=== PATIENT | female | born 1980 | race Caucasian/White ===

== ENCOUNTER 2016-12-02 23:05 | Emergency (ER) | payer OTHER ==
--- NOTE | 2016-12-03 00:48 | ED CLINICAL REPORT ---
Clinical Report - Physicians/Mid Levels [facility] [address] [place] [address] 12/02/2016 23:05 [id number] Time Seen: 23:19. Arrived- By private vehicle. Historian- patient. HISTORY OF PRESENT ILLNESS Chief Complaint: Injury to the right ankle. The injury happened today. The patient sustained an inversion injury while running playing soccer (she felt a "pop"). Occurred at an athletic field. Patient is experiencing mild pain. No other injury. REVIEW OF SYSTEMS The patient complains of pain on weight bearing. She has had new onset of swelling of the right ankle (mild). She has had new onset of weakness of the right ankle (severe). No tingling, numbness or skin laceration. All systems otherwise negative, except as recorded above. SOCIAL HISTORY Never smoker. No alcohol use or drug use. FAMILY HISTORY No significant family medical history. ADDITIONAL NOTES The nursing notes have been reviewed. PHYSICAL EXAM Vital Signs: 12/02/2016 23:11 BP: 117/73. HR: 82. RR: 14. O2 saturation: 99%. Temp: 97.6 F. Pain level now: 2/10. Have been reviewed. Appearance: Alert. Eyes: Pupils equal, round and reactive to light. ENT: Pharynx normal. Neck: Neck supple. CVS: Normal heart rate and rhythm. Heart sounds normal. Respiratory: No respiratory distress. Breath sounds normal. Abdomen: No visible injury. Soft and nontender. Bowel sounds normal. No organomegaly. No mass. Back: Normal inspection. Skin: Skin intact. Skin warm and dry. Extremities: Right lateral ankle: moderate tenderness and swelling. Limited ROM secondary to pain (diminished eversion). Ligamentous laxity present, as evidenced by a positive anterior drawer test and positive inversion stress test. Neurovascular intact distally. No ecchymosis or deformity. Extremities otherwise negative. Neuro, Vascular and Tendons: Vascular status intact. Sensation intact. Motor intact. Gait: Gait not tested due to pain. Neuro: No motor deficit. No sensory deficit. LABS, X-RAYS, AND EKG Rt Ankle X-ray: Avulsion fracture of the distal right fibula. The X-rays were independently viewed by me. PROGRESS AND PROCEDURES Splint Application: Orthopedic boot applied to right ankle. Reassessed extremity following splint application. Neurovascular intact. Follow-up recommended. Fitted for crutches by the tech. Consult obtained from orthopedics. Dr. Richardson. Phone consult only. Will see patient in the office. Patient/family counseled. Old medical records ordered. Old records unavailable. Disposition: Discharged. Condition: stable. CLINICAL IMPRESSION Sprain of the right ankle. Closed avulsion fracture of the lateral malleolus of the right fibula. INSTRUCTIONS Apply ice for 20 minutes four times a day until better. Don't apply ice directly to skin and don't use while asleep. Use crutches until released. Wear boot orthosis until released. Elevate affected areas above chest level. No driving or operating machinery while taking medication. Warnings: COMPLICATIONS: Complications from this condition include: possible injury to a tendon and possible injury to a ligament. Future problems may include loss of function, pain, deformity and poor fracture healing. It is important to follow up with a physician for further evaluation and treatment. GENERAL WARNINGS: Return or contact your physician immediately if your condition worsens or changes unexpectedly, if not improving as expected, or if other problems arise. Prescription Medications: Hydrocodone/APAP 5mg/325mg: take 1 to 2 orally every 6 hours as needed for pain. Dispense fifteen (15). No refills. Understanding of the discharge instructions verbalized by patient. Follow-up with: [facility], , [address], , [place], [address] Follow up in two days. Call for the next available appointment. (Electronically signed by Erickson Mitchell MD 12/03/2016 2:31)
--- NOTE | 2016-12-03 00:48 | ED NURSING NOTES ---
Clinical Report - Nurses [facility] [address] [place] [address] 12/02/2016 23:05 Patient: RAMIRO GONCALVES TRIAGE Triage time 23:11 Dec 02 2016. Chief Complaint: INJURY TO RIGHT ANKLE. SEPSIS SCREEN: Sepsis Screen: negative. Negative (no infection suspected/documented). OTTO COMA SCORE: [place] Coma Scale: 15- eyes open spontaneously (4); best verbal response- oriented x 4 (5); best motor response- obeys commands (6). --23:19 AliM 23:11 12/02/16. BP: 117/73. HR: 82. RR: 14. O2 saturation: 99%. Temp: 97.6 F (oral). Pain level now: 11/13. --23:19 AliM. Weight: 48.5 kg stated. Height/Length: 62 inches Per Patient. BMI: 19.6. --23:19 AliM. Medications Citalopram Hydrobromide Oral. --23:14 AliM Depo-Provera Intramuscular. --23:17 AliM. Allergies No Known Drug Allergy. --23:14 AliM. History Arrived by private vehicle. Historian: patient. Unaccompanied. Primary physician (Ema Camargo). ( Fell and twisted right ankle.). This occurred just prior to arrival. Occurred at an athletic field. Mechanism of injury: sustained an external rotation injury. ( Pt reports playing soccer when she fell and twisted her ankle laterally. Pt reports hearing one pop.). She has had numbness, trouble walking and weakness. 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 PAST MEDICAL HX: Tetanus status: up-to-date. Immunizations: up-to-date. Last normal menstrual period- 10/30/2016. SOCIAL HX: Never smoker. No alcohol use or drug use. No infectious disease exposure. ABUSE ASSESSMENT: No report of abuse. NUTRITIONAL RISK ASSESSMENT: The nutritional risk assessment revealed no deficiencies. FUNCTIONAL ASSESSMENT: Functional assessment: no impairments noted. LEARNING NEEDS ASSESSMENT: The learning needs assessment revealed no barriers. FALL RISK ASSESSMENT: Fall risk assessment completed. Risk factors identified include patient impairment of mobility and sensation. Fall interventions initiated. Side rails up x1. Instructed not to get up without assistance. SKIN INTEGRITY ASSESSMENT: Skin integrity risk assessment completed. No skin integrity risk identified. --23:19 AliM. ADDITIONAL SURGERIES: C section. --23:15 AliM. Interventions ID band on patient. To treatment room. --23:19 AliM. PHYSICAL ASSESSMENT Ambulatory to room. GENERAL / NEURO / PSYCH: Oriented X 4. Alert. Appears in no acute distress. CVS: Capillary refill is greater than 2 seconds (Cap refill 3sec but consistent with unaffected extremity.). EXTREMITIES: Limited ROM present in the right ankle. Extremity pulses are within normal limits. Pain with weight bearing on RLE. Right lateral ankle: swelling. Limited ROM secondary to pain (diminished dorsiflexion). SKIN: Skin intact. Skin is warm and dry. --23:21 AliM. NURSING PROGRESS NOTES The plan of care for this patient has been created. Cold pack applied. Extremity elevated. Reassurance given. Call light placed in reach. Side rails up x 1. Bed placed in lowest position. Brakes of bed on. Patient ready for evaluation- ED physician notified. --23:22 AliM Immobilizer applied by histopathology technician; distal pulses intact, sensation intact and motor function within normal limits (Right Ankle Boot). Patient fit with new crutches. Crutch training performed by [employer]; the patient demonstrated proper use. --00:25 Willi Pope. DISPOSITION / DISCHARGE 01:00 12/03/16. Condition at departure: stable. Fall risk assessment completed; Patient using crutches, patient observed ambulating and is steady on her feet. No learning barriers present. Discharge instructions provided and reviewed with the patient. Reviewed medication(s) side effects, precautions, dosing and course information. Prescription(s) given to the patient. Activity restrictions (minimal use of injured extremity and rest) reviewed. Patient verbalized understanding. Written instructions provided in Icelandic. ( Ice and elevate. Do not put weight on affected extremity until cleared. Follow up with Orthopedic surgeon in two days, information provided. Wear boot until released. Reviewed Crutch walking.). The patient was discharged by the physician. She was discharged home and accompanied by fur cutting machine operator. She left the Emergency Department on crutches and via private vehicle. Supervisor [employer] driving. FALL RISK ASSESSMENT: Fall risk assessment completed. No fall risk identified. --01:22 Beatrice Patel 01:00 12/03/16. BP: 114/70. HR: 78. RR: 20. O2 saturation: 99% on room air. Temp: deferred. Pain level now: 10/13. --01:22 Beatrice Patel. Locked/Released at 12/03/2016 1:23 by Beatrice Patel,
--- NOTE | 2016-12-03 00:48 | ED ORDER SUMMARY ---
..... Patient: RAMIRO GONCALVES OrderSheet [facility] VisitID: [id number] [address] [place] [address] 36y, F Registration Date/Time: 12/02/2016 ORDER SHEET Weight: 48.5 kg (stated) Allergies: No Known Drug Allergy GENERAL ORDERS: Ankle 3 or 4V Right Urgent (23:34 12/02/2016 Jose WATSON) (Ack 23:36 IJurca ER Tech1) (23:46 MCampbell) Crutches (23:59 12/02/2016 Jose WATSON) (0:01 AMcKenna) Orthopedic Boot (23:59 12/02/2016 Jose WATSON) (0:01 AMcKenna) MEDICATION ORDERS: IV FLUIDS: ORDER SHEET NOTES: [Electronically signed by Beatrice Patel (:12/03/2016)] [Electronically signed by Erickson Mitchell MD (02:31 12/03/2016)] [Electronically locked/signed by Beatrice Patel (:12/03/2016)]
--- NOTE | 2016-12-03 00:48 | ED CLINICAL REPORT ---
Clinical Report - Physicians/Mid Levels [facility] [address] [place] [address] 12/02/2016 23:05 [id number] Time Seen: 23:19. Arrived- By private vehicle. Historian- patient. HISTORY OF PRESENT ILLNESS Chief Complaint: Injury to the right ankle. The injury happened today. The patient sustained an inversion injury while running playing soccer (she felt a "pop"). Occurred at an athletic field. Patient is experiencing mild pain. No other injury. REVIEW OF SYSTEMS The patient complains of pain on weight bearing. She has had new onset of swelling of the right ankle (mild). She has had new onset of weakness of the right ankle (severe). No tingling, numbness or skin laceration. All systems otherwise negative, except as recorded above. SOCIAL HISTORY Never smoker. No alcohol use or drug use. FAMILY HISTORY No significant family medical history. ADDITIONAL NOTES The nursing notes have been reviewed. PHYSICAL EXAM Vital Signs: 12/02/2016 23:11 BP: 117/73. HR: 82. RR: 14. O2 saturation: 99%. Temp: 97.6 F. Pain level now: 2/10. Have been reviewed. Appearance: Alert. Eyes: Pupils equal, round and reactive to light. ENT: Pharynx normal. Neck: Neck supple. CVS: Normal heart rate and rhythm. Heart sounds normal. Respiratory: No respiratory distress. Breath sounds normal. Abdomen: No visible injury. Soft and nontender. Bowel sounds normal. No organomegaly. No mass. Back: Normal inspection. Skin: Skin intact. Skin warm and dry. Extremities: Right lateral ankle: moderate tenderness and swelling. Limited ROM secondary to pain (diminished eversion). Ligamentous laxity present, as evidenced by a positive anterior drawer test and positive inversion stress test. Neurovascular intact distally. No ecchymosis or deformity. Extremities otherwise negative. Neuro, Vascular and Tendons: Vascular status intact. Sensation intact. Motor intact. Gait: Gait not tested due to pain. Neuro: No motor deficit. No sensory deficit. LABS, X-RAYS, AND EKG Rt Ankle X-ray: Avulsion fracture of the distal right fibula. The X-rays were independently viewed by me. PROGRESS AND PROCEDURES Splint Application: Orthopedic boot applied to right ankle. Reassessed extremity following splint application. Neurovascular intact. Follow-up recommended. Fitted for crutches by the tech. Consult obtained from orthopedics. Dr. Richardson. Phone consult only. Will see patient in the office. Patient/family counseled. Old medical records ordered. Old records unavailable. Disposition: Discharged. Condition: stable. CLINICAL IMPRESSION Sprain of the right ankle. Closed avulsion fracture of the lateral malleolus of the right fibula. INSTRUCTIONS Apply ice for 20 minutes four times a day until better. Don't apply ice directly to skin and don't use while asleep. Use crutches until released. Wear boot orthosis until released. Elevate affected areas above chest level. No driving or operating machinery while taking medication. Warnings: COMPLICATIONS: Complications from this condition include: possible injury to a tendon and possible injury to a ligament. Future problems may include loss of function, pain, deformity and poor fracture healing. It is important to follow up with a physician for further evaluation and treatment. GENERAL WARNINGS: Return or contact your physician immediately if your condition worsens or changes unexpectedly, if not improving as expected, or if other problems arise. Prescription Medications: Hydrocodone/APAP 5mg/325mg: take 1 to 2 orally every 6 hours as needed for pain. Dispense fifteen (15). No refills. Understanding of the discharge instructions verbalized by patient. Follow-up with: [facility], , [address], , [place], [address] Follow up in two days. Call for the next available appointment. (Electronically signed by Erickson Mitchell MD 12/03/2016 2:31)
--- NOTE | 2016-12-03 00:48 | ED ORDER SUMMARY ---
..... Patient: RAMIRO GONCALVES OrderSheet [facility] VisitID: [id number] [address] [place] [address] 36y, F Registration Date/Time: 12/02/2016 ORDER SHEET Weight: 48.5 kg (stated) Allergies: No Known Drug Allergy GENERAL ORDERS: Ankle 3 or 4V Right Urgent (23:34 12/02/2016 Jose WATSON) (Ack 23:36 IJurca ER Tech1) (23:46 MCampbell) Crutches (23:59 12/02/2016 Jose WATSON) (0:01 AMcKenna) Orthopedic Boot (23:59 12/02/2016 Jose WATSON) (0:01 AMcKenna) MEDICATION ORDERS: IV FLUIDS: ORDER SHEET NOTES: [Electronically signed by Beatrice Patel (:12/03/2016)] [Electronically signed by Erickson Mitchell MD (02:31 12/03/2016)] [Electronically locked/signed by Beatrice Patel (:12/03/2016)]
--- NOTE | 2016-12-03 00:48 | ED NURSING NOTES ---
Clinical Report - Nurses [facility] [address] [place] [address] 12/02/2016 23:05 Patient: RAMIRO GONCALVES TRIAGE Triage time 23:11 Dec 02 2016. Chief Complaint: INJURY TO RIGHT ANKLE. SEPSIS SCREEN: Sepsis Screen: negative. Negative (no infection suspected/documented). OTTO COMA SCORE: [place] Coma Scale: 15- eyes open spontaneously (4); best verbal response- oriented x 4 (5); best motor response- obeys commands (6). --23:19 AliM 23:11 12/02/16. BP: 117/73. HR: 82. RR: 14. O2 saturation: 99%. Temp: 97.6 F (oral). Pain level now: 11/13. --23:19 AliM. Weight: 48.5 kg stated. Height/Length: 62 inches Per Patient. BMI: 19.6. --23:19 AliM. Medications Citalopram Hydrobromide Oral. --23:14 AliM Depo-Provera Intramuscular. --23:17 AliM. Allergies No Known Drug Allergy. --23:14 AliM. History Arrived by private vehicle. Historian: patient. Unaccompanied. Primary physician (Ema Camargo). ( Fell and twisted right ankle.). This occurred just prior to arrival. Occurred at an athletic field. Mechanism of injury: sustained an external rotation injury. ( Pt reports playing soccer when she fell and twisted her ankle laterally. Pt reports hearing one pop.). She has had numbness, trouble walking and weakness. 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 PAST MEDICAL HX: Tetanus status: up-to-date. Immunizations: up-to-date. Last normal menstrual period- 10/30/2016. SOCIAL HX: Never smoker. No alcohol use or drug use. No infectious disease exposure. ABUSE ASSESSMENT: No report of abuse. NUTRITIONAL RISK ASSESSMENT: The nutritional risk assessment revealed no deficiencies. FUNCTIONAL ASSESSMENT: Functional assessment: no impairments noted. LEARNING NEEDS ASSESSMENT: The learning needs assessment revealed no barriers. FALL RISK ASSESSMENT: Fall risk assessment completed. Risk factors identified include patient impairment of mobility and sensation. Fall interventions initiated. Side rails up x1. Instructed not to get up without assistance. SKIN INTEGRITY ASSESSMENT: Skin integrity risk assessment completed. No skin integrity risk identified. --23:19 AliM. ADDITIONAL SURGERIES: C section. --23:15 AliM. Interventions ID band on patient. To treatment room. --23:19 AliM. PHYSICAL ASSESSMENT Ambulatory to room. GENERAL / NEURO / PSYCH: Oriented X 4. Alert. Appears in no acute distress. CVS: Capillary refill is greater than 2 seconds (Cap refill 3sec but consistent with unaffected extremity.). EXTREMITIES: Limited ROM present in the right ankle. Extremity pulses are within normal limits. Pain with weight bearing on RLE. Right lateral ankle: swelling. Limited ROM secondary to pain (diminished dorsiflexion). SKIN: Skin intact. Skin is warm and dry. --23:21 AliM. NURSING PROGRESS NOTES The plan of care for this patient has been created. Cold pack applied. Extremity elevated. Reassurance given. Call light placed in reach. Side rails up x 1. Bed placed in lowest position. Brakes of bed on. Patient ready for evaluation- ED physician notified. --23:22 AliM Immobilizer applied by planning technician; distal pulses intact, sensation intact and motor function within normal limits (Right Ankle Boot). Patient fit with new crutches. Crutch training performed by [employer]; the patient demonstrated proper use. --00:25 Willi Pope. DISPOSITION / DISCHARGE 01:00 12/03/16. Condition at departure: stable. Fall risk assessment completed; Patient using crutches, patient observed ambulating and is steady on her feet. No learning barriers present. Discharge instructions provided and reviewed with the patient. Reviewed medication(s) side effects, precautions, dosing and course information. Prescription(s) given to the patient. Activity restrictions (minimal use of injured extremity and rest) reviewed. Patient verbalized understanding. Written instructions provided in Italian. ( Ice and elevate. Do not put weight on affected extremity until cleared. Follow up with Orthopedic surgeon in two days, information provided. Wear boot until released. Reviewed Crutch walking.). The patient was discharged by the physician. She was discharged home and accompanied by sheeter machine operator. She left the Emergency Department on crutches and via private vehicle. Dry Cell Tester driving. FALL RISK ASSESSMENT: Fall risk assessment completed. No fall risk identified. --01:22 Beatrice Patel 01:00 12/03/16. BP: 114/70. HR: 78. RR: 20. O2 saturation: 99% on room air. Temp: deferred. Pain level now: 10/13. --01:22 Beatrice Patel. Locked/Released at 12/03/2016 1:23 by Beatrice Patel,
--- NOTE | 2016-12-03 02:32 | ED MED RECONCILIATION SUMMARY ---
Patient: RAMIRO GONCALVES Medication Reconciliation Report [facility] VisitID: [id number] [address] [place] [address] 36y, F Registration Date/Time: 12/02/2016 Weight: 48.5 kg Height/Length: 62 in. BMI: 19.6 ALLERGIES: No Known Drug Allergy The patient's Home Medications are listed below: THE FOLLOWING MEDICATIONS NEED TO BE RECONCILED: Citalopram Hydrobromide Oral Depo-Provera Intramuscular The source(s) of the original Home Medication information: Not obtained. The following Medications were given to the patient in the Emergency Department: None. The following Medications were prescribed to the patient: Hydrocodone/APAP 5mg/325mg: take 1 to 2 orally every 6 hours as needed for pain. Dispense fifteen (15). No refills. -- Erickson Mitchell MD
--- NOTE | 2016-12-03 02:32 | ED MAR SUMMARY ---
..... Medication Administration Record [facility] [address], [place] [id number] Patient: RAMIRO GONCALVES Visit ID: [id number] 36y, F Weight: 48.5 kg Height/Length: 62 in BMI: 19.6 ALLERGIES: No Known Drug Allergy
--- NOTE | 2016-12-03 02:32 | ED MAR SUMMARY ---
..... Medication Administration Record [facility] [address] [place], [place] [id number] Patient: RAMIRO GONCALVES Visit ID: [id number] 36y, F Weight: 48.5 kg Height/Length: 62 in BMI: 19.6 ALLERGIES: No Known Drug Allergy
--- NOTE | 2016-12-03 02:32 | ED DISCHARGE INSTRUCTIONS ---
Patient: RAMIRO GONCALVES General Instructions [facility] VisitID: [id number] [address] [place] [address] 36y, F Registration Date/Time: 12/02/2016 Sprain of the right ankle. Closed avulsion fracture of the lateral malleolus of the right fibula. INSTRUCTIONS Apply ice for 20 minutes four times a day until better. Don't apply ice directly to skin and don't use while asleep. Use crutches until released. Wear boot orthosis until released. Elevate affected areas above chest level. No driving or operating machinery while taking medication. Warnings: COMPLICATIONS: Complications from this condition include: possible injury to a tendon and possible injury to a ligament. Future problems may include loss of function, pain, deformity and poor fracture healing. It is important to follow up with a physician for further evaluation and treatment. GENERAL WARNINGS: Return or contact your physician immediately if your condition worsens or changes unexpectedly, if not improving as expected, or if other problems arise. Prescription Medications: Hydrocodone/APAP 5mg/325mg: take 1 to 2 orally every 6 hours as needed for pain. Dispense fifteen (15). No refills. Understanding of the discharge instructions verbalized by patient. Follow-up with: [facility], , [address], , [place], [id number] Follow up in two days. Call for the next available appointment. ADDITIONAL INFORMATION Sprain, Ankle,With X-Ray A sprain is an injury to the ligaments or capsule that holds a joint together. There are no broken bones. Most sprains take from four to six weeks to heal. If the ligament is completely torn (severe sprain), it can take several months to recover. Mild to moderate sprains may be treated with an elastic wrap or an in-shoe splint to provide support and prevent re-injury. A mild sprain may not require any additional support. A severe sprain may require surgery to repair. Home care The following guidelines will help you care for your injury at home: Stay off the injured leg as much as possible until you can walk on it without pain. If you have a lot of pain with walking, crutches or a walker may be prescribed. (These can be rented or purchased at many pharmacies and surgical or orthopedic supply stores). Follow your doctor's advice regarding when to begin bearing weight on that leg. Keep your leg elevated to reduce pain and swelling. When sleeping, place a pillow under the injured leg. When sitting, support the injured leg so it is level with your waist. This is very important during the first 48 hours. Apply an ice pack (ice cubes in a plastic bag, wrapped in a towel) over the injured area for 20 minutes every 12 hours the first day. You can place the ice pack directly over the splint/cast. If you were given a boot, open it to apply the ice pack. Continue with ice packs 34 times a day for the next two days, then as needed for the relief of pain and swelling. You may use acetaminophen or ibuprofen to control pain, unless another pain medicine was prescribed. If you have chronic liver or kidney disease or ever had a stomach ulcer or GI bleeding, talk with your doctor before using these medicines. You may return to sports after healing, when you can run without pain. A sprained ankle is at risk for re-injury during the first six weeks. During that time, protect your ankle with an in-shoe splint that prevents tilting of your ankle from side to side. This is very important if you do active work or play sports during that time. Follow-up care Any X-rays you had today dont show any broken bones, breaks, or fractures. Sometimes fractures dont show up on the first X-ray. Bruises and sprains can sometimes hurt as much as a fracture. These injuries can take time to heal completely. If your symptoms dont improve or they get worse, talk with your doctor. You may need a repeat X-ray. When to seek medical care Get prompt medical attention if any of the following occur: The plaster cast or splint gets wet or soft The fiberglass cast or splint gets wet and does not dry for 24 hours Pain or swelling increases, or redness appears Toes become cold, blue, numb or tingly Re-injure your ankle Fracture,Ankle, Distal Fibula You have a fracture (broken bone) of the end of the fibula bone. This is one of two bones that support the ankle joint. Home Care: You will be given a splint, cast or special boot to prevent movement at the site of injury. Do not put weight on a splint; it will break. Follow your doctor's advice regarding when to begin bearing weight on a cast or boot. Keep your leg elevated when sitting or lying down. When sleeping, place a pillow under the injured leg. When sitting, support the injured leg so it is level with your waist. This is very important during the first 48 hours. Keep the cast/splint completely dry at all times. When bathing, protect the cast/splint with a large plastic bag, rubber-banded at the top end. If a fiberglass cast or splint gets wet, you can dry it with a hair-dryer. Place an ice pack (ice cubes in a plastic bag, wrapped in a towel) on the splint/cast over the injured area for 20 minutes every 2 hours during the first day.You can place the ice pack directly over the splint/cast. Continue this 3-4 times a day for the next two days. You may use acetaminophen (Tylenol) or ibuprofen (Motrin, Advil) to control pain, unless another pain medicine was prescribed. [NOTE: If you have chronic liver or kidney disease or ever had a stomach ulcer or GI bleeding, talk with your doctor before using these medicines.] Follow Up with your doctor in one week, or as advised by our staff, to be sure the bone is healing properly. If you were given a splint, it may be changed to a cast after the swelling goes down. [NOTE: A radiologist will review any X-rays that were taken. We will notify you of any new findings that may affect your care.] Get Prompt Medical Attention if any of the following occur: The plaster cast or splint becomes wet or soft The fiberglass cast or splint remains wet for more than 24 hours Increased tightness or pain under the cast or splint Toes become swollen, cold, blue, numb or tingly Crutch Walking Crutch Adjustment Make sure the crutches you use are adjusted to fit you. When you stand, there should be room to fit 2-3 fingers between the top of the crutch and your armpit. Your elbow should be slightly bent when holding the hand printer apprentice. Crutch Walking: Place the crutches forward 12" in front of and 6" to the side of your feet. Lean your weight forward as you push down on the handgrips. Your weight should be on your hands and yourstrong leg, not your armpits . Let your body swing through, landing on the strong leg. Advance the crutches forward again. The crutch and the injured leg should move together. Going Up Steps: ("Up with the good") With both crutches on the same step as your feet, push down on the handgrips. Balancing with very light pressure on the weak leg, let your hands support your weight as you raise your strong leg onto the next higher step. Transfer all your weight to your strong leg (still bent) as you move the crutches up to the next step alongside the strong leg. With your weight evenly balanced on the two crutches and your strong leg, straighten your strong knee as you raise the weak leg up to the next step. Going Down Steps: ("Down with the bad") With both crutches on the same step as your feet, push down on the handgrips. With your weight evenly balanced on the two crutches and your strong leg, bend your strong knee as you lower the weak leg down to the next step. Let your strong leg support you (still bent) as you move the crutches down alongside the weak leg. Transfer your weight to your hands, balancing with very light pressure on the weak leg as you lower your strong leg alongside your weak leg. Aircast Sp-Walker Boot Traditional splints and casts for the foot and ankle protect the injury by preventing movement at the joints. However, many injuries heal better and faster if the injured joint can be moved, while protected at the same time. This is the reason for using an Aircast Walker boot. This is a short boot that provides support and protection to the foot and ankle while allowing you to walk. It contains padded air cells that provide compression and help circulation. It is used for both foot and ankle injuries - both sprains and minor fractures. Ankle and foot sprains can take 4-6 weeks to heal. Persons with severe injuries or over age 60 may require more time to heal. During that time, you are prone to re-injury by suddenly twisting your foot or ankle again while the ligaments are still weak. When treating a sprain, the AirCast Walker boot should be worn whenever walking for at least four weeks, or as long as you continue to have ankle pain. Talk to your doctor for specific advice about the treatment of your condition. Air-Stirrup and SP-Walker are trademarks of [employer]. For more information about their products, see www.[employer]. Hydrocodone Bitartrate, Acetaminophen Oral tablet What is this medicine? ACETAMINOPHEN; HYDROCODONE (a set a KLAUDIA austin fen; jackelin droe KOE done) is a pain reliever. It is used to treat mild to moderate pain. How should I use this medicine? Take this medicine by mouth. Swallow it with a full glass of water. Follow the directions on the prescription label. If the medicine upsets your stomach, take the medicine with food or milk. Do not take more than you are told to take. Talk to your staff development nurse regarding the use of this medicine in children. This medicine is not approved for use in children. What side effects may I notice from receiving this medicine? Side effects that you should report to your doctor or health emergency care tech as soon as possible: allergic reactions like skin rash, itching or hives, swelling of the face, lips, or tongue breathing problems confusion feeling faint or lightheaded, falls stomach pain yellowing of the eyes or skin Side effects that usually do not require medical attention (report to your doctor or health emergency care tech if they continue or are bothersome): nausea, vomiting stomach upset What may interact with this medicine? alcohol antihistamines isoniazid medicines for depression, anxiety, or psychotic disturbances medicines for sleep muscle relaxants naltrexone narcotic medicines (opiates) for pain phenobarbital ritonavir tramadol What if I miss a dose? If you miss a dose, take it as soon as you can. If it is almost time for your next dose, take only that dose. Do not take double or extra doses. Where should I keep my medicine? Keep out of the reach of children. This medicine can be abused. Keep your medicine in a safe place to protect it from theft. Do not share this medicine with anyone. Selling or giving away this medicine is dangerous and against the law. Store at room temperature between 15 and 30 degrees C (59 and 86 degrees F). Protect from light. Keep container tightly closed. Throw away any unused medicine after the expiration date. Discard unused medicine and used packaging carefully. Pets and children can be harmed if they find used or lost packages. What should I tell my health care provider before I take this medicine? They need to know if you have any of these conditions: brain tumor Crohn's disease, inflammatory bowel disease, or ulcerative colitis drink more than 3 alcohol-containing drinks per day drug abuse or addiction head injury heart or circulation problems kidney disease or problems going to the bathroom liver disease lung disease, asthma, or breathing problems an unusual or allergic reaction to acetaminophen, hydrocodone, other opioid analgesics, other medicines, foods, dyes, or preservatives or trying to get breast-feeding What should I watch for while using this medicine? Tell your doctor or health emergency care tech if your pain does not go away, if it gets worse, or if you have new or a different type of pain. You may develop tolerance to the medicine. Tolerance means that you will need a higher dose of the medicine for pain relief. Tolerance is normal and is expected if you take the medicine for a long time. Do not suddenly stop taking your medicine because you may develop a severe reaction. Your body becomes used to the medicine. This does NOT mean you are addicted. Addiction is a behavior related to getting and using a drug for a non-medical reason. If you have pain, you have a medical reason to take pain medicine. Your doctor will tell you how much medicine to take. If your doctor wants you to stop the medicine, the dose will be slowly lowered over time to avoid any side effects. You may get drowsy or dizzy when you first start taking the medicine or change doses. Do not drive, use machinery, or do anything that may be dangerous until you know how the medicine affects you. Stand or sit up slowly. There are different types of narcotic medicines (opiates) for pain. If you take more than one type at the same time, you may have more side effects. Give your health care provider a list of all medicines you use. Your doctor will tell you how much medicine to take. Do not take more medicine than directed. Call emergency for help if you have problems breathing. The medicine will cause constipation. Try to have a bowel movement at least every 2 to 3 days. If you do not have a bowel movement for 3 days, call your doctor or health emergency care tech. Too much acetaminophen can be very dangerous. Do not take Tylenol (acetaminophen) or medicines that contain acetaminophen with this medicine. Many non-prescription medicines contain acetaminophen. Always read the labels carefully. You have been given the following additional information: Sprain, Ankle, With X-Ray Ankle Fracture (Distal Fibula), Closed Crutch Walking Walker Boot Hydrocodone Bitartrate, Acetaminophen Oral tablet No driving or operating machinery while taking medication. (Electronically signed by Erickson Mitchell MD 12/03/2016 2:31)
--- NOTE | 2016-12-03 02:32 | ED MED RECONCILIATION SUMMARY ---
Patient: RAMIRO GONCALVES Medication Reconciliation Report [facility] VisitID: [id number] [address] [place] [address] 36y, F Registration Date/Time: 12/02/2016 Weight: 48.5 kg Height/Length: 62 in. BMI: 19.6 ALLERGIES: No Known Drug Allergy The patient's Home Medications are listed below: THE FOLLOWING MEDICATIONS NEED TO BE RECONCILED: Citalopram Hydrobromide Oral Depo-Provera Intramuscular The source(s) of the original Home Medication information: Not obtained. The following Medications were given to the patient in the Emergency Department: None. The following Medications were prescribed to the patient: Hydrocodone/APAP 5mg/325mg: take 1 to 2 orally every 6 hours as needed for pain. Dispense fifteen (15). No refills. -- Erickson Mitchell MD
--- NOTE | 2016-12-03 08:27 | DIAGNOSTIC IMAGING REPORT ---
PROCEDURE: XR ANKLE 3 OR 4 VIEWS - RIGHT INDICATION: TRAUMA/INJURY TECHNIQUE: Four views. COMPARISON: None. FINDINGS: There is a mildly displaced 4 mm avulsion fracture at the tip of the lateral malleolus. Osseous structures and joint spaces are otherwise normal. IMPRESSION: 1. Mildly displaced avulsion fracture of the lateral malleolus. 2. Otherwise negative right ankle. 3. Findings discussed with Dr. Erickson Mitchell.
== END 2016-12-03 01:00 | disposition home or self-care (01) ==
LOC: ED SRH 23:05
DX: S82.61XA Displaced fracture of lateral malleolus of right fibula, initial encounter for closed fracture (principal); S93.401A Sprain of unspecified ligament of right ankle, initial encounter; X50.1XXA Overexertion from prolonged static or awkward postures, initial encounter; Y93.66 Activity, soccer; Y92.322 Soccer field as the place of occurrence of the external cause; Y99.8 Other external cause status